=== PATIENT | male | born 1930 | race Caucasian/White ===

== ENCOUNTER 2017-04-06 08:06 | Observation (INO) | payer MEDICARE, BC ==
[2017-04-06] VITALS (17 sets, daily range): BP systolic 140–218; BP diastolic 63–95; PULSE 65–88; RESP 16–21; TEMP 98–98.5; O2SAT 96–98
[~2017-04-06 08:06] MED LIST: AZIT250T74 PO; CEFU1TAB43 PO; LASI20TA PO; OMEP20CA5 PO; POTA-267 PO; PRAV10 PO; PRED10PA PO; PRIN10TA PO; PROB500T10 PO; PROS5TAB2 PO; SUCR1TAB6 PO; TAB-TAB PO; TERA10CA3 PO; TRAM50 PO; VERA80 PO; VITA-13 PO; WARF7.5 PO
[2017-04-06] MEDS ORDERED: PROCHLORPERAZINE INJ 10 MG/2 ML VIAL IV PUSH ONE (08:45)
[2017-04-06] MEDS ORDERED: MORPHINE SULFATE 4 MG/ML INJ IV ONE (08:45)
--- NOTE | 2017-04-06 08:57 | PD ---
HPI Chief Complaint: Headache Time Seen by Provider: 08:39 Travel History International Travel<30 days: No Contact w/Intl Traveler<30days: No Traveled to known affect area: No History of Present Illness HPI Patient is a 86-year-old male who presents to ED complaining of severe headache and stiff neck. The headache started yesterday around 4 PM. Patient describes the headache as a continuous pressure pain (9/10), located on top of his head. Patient states that he feels his head is going to explode. Patient was unable to sleep until patient took additional dose of tramadol, which allowed him to sleep for approximately 3 hours. Patient describes sleep as deep sleep. Patient denies vision changes. Patient denies nausea and vomiting. Patient denies diarrhea and constipation. Patient denies weakness of upper and lower extremities. Patient reports left-sided numbness in the tip of his fingers. Patient denies previous headaches. Patient's reports that he has experienced stiff neck on and off for the past 6 months. PFSH Past Medical History Hx Anticoagulant Therapy: Yes Atrial Fibrillation: Yes Autoimmune Disease: No Anxiety: Yes Heart Rhythm Problems: Yes Cancer: Yes (MELANOMA NOSE) Cardiovascular Problems: Yes (a fib) High Cholesterol: Yes Diabetes: No Diminished Hearing: No Endocrine: No GERD: Yes Glaucoma: No Genitourinary: No Hepatitis: No Hiatal Hernia: No Hypertension: Yes Immune Disorder: No Musculoskeletal: No Reproductive: No Respiratory: No Thyroid Disease: No Past Surgical History Abdominal Surgery: Yes Cardiac Surgery: No Ear Surgery: No Eye Surgery: No Genitourinary Surgery: No Gynecologic Surgery: No Oral Surgery: No Pacemaker: No Thoracic Surgery: No Social History Alcohol Use: No Tobacco Use: No Substance Use: No Allergies-Medications (Allergen,Severity, Reaction): Coded Allergies: No Known Allergies (Verified , 04/01/15) Reported Meds & Prescriptions Reported Meds & Active Scripts Active Reported Verapamil SR (Verapamil HCl) 180 Mg Cap 180 Mg PO DAILY Tramadol (Tramadol HCl) 50 Mg Tab 50 Mg PO Q4H PRN Terazosin (Terazosin HCl) 2 Mg Cap 2 Mg PO HS Vitamin D3 (Cholecalciferol) 1,000 Unit Chew 1,000 Units CHEW DAILY Probenecid 500 Mg Tab 250 Mg PO Q12HR Sucralfate 1 Gm Tab 1 Gm PO QID on empty stomach Pravastatin 40 Mg Tab 40 Mg PO DAILY Potassium Chloride ER (Potassium Chloride) 10 Meq Tab 10 Meq PO BID Omeprazole 20 Mg Tab 20 Mg PO DAILY Lisinopril 40 Mg Tab 40 Mg PO DAILY Furosemide 20 Mg Tab 20 Mg PO BID Finasteride 5 Mg Tab 5 Mg PO DAILY Do not crush. Pradaxa (Dabigatran) 150 Mg Cap 150 Mg PO BID Review of Systems General / Constitutional: No: Fever Eyes: No: Visual changes HENT: Positive: Headaches Cardiovascular: No: Chest Pain or Discomfort Respiratory: No: Shortness of Breath Gastrointestinal: No: Nausea, Vomiting, Diarrhea, Abdominal Pain, Constipation Genitourinary: No: Dysuria Musculoskeletal: Positive: Pain (neck ) Skin: No Rash Neurologic: No: Weakness Psychiatric: No: Depression Endocrine: No: Polydipsia Hematologic/Lymphatic: No: Easy Bruising Physical Exam Narrative GENERAL: Patient is a well-nourished, well-developed, elderly male in no apparent distress. SKIN: Warm and dry. HEAD: Atraumatic. Normocephalic. EYES: Pupils equal and round. No scleral icterus. No injection or drainage. ENT: No nasal bleeding or discharge. Mucous membranes pink and moist. NECK: Trachea midline. No JVD. CARDIOVASCULAR: Regular rate and rhythm. RESPIRATORY: No accessory muscle use. Clear to auscultation. Breath sounds equal bilaterally. GASTROINTESTINAL: Abdomen soft, non-tender, nondistended. Hepatic and splenic margins not palpable. MUSCULOSKELETAL: Extremities without clubbing, cyanosis, or edema. No obvious deformities. NEUROLOGICAL: Awake and alert. No obvious cranial nerve deficits. Motor and sensory grossly within normal limits. Five out of 5 muscle strength in the arms and legs. Normal speech. PSYCHIATRIC: Appropriate mood and affect; insight and judgment normal. Data Data Last Documented VS Vital Signs Date Time Temp Pulse Resp B/P (MAP) Pulse Ox O2 Delivery O2 Flow Rate FiO2 04/06/17 09:30 65 16 179/76 (110) 97 04/06/17 08:08 98.4 Orders Orders Electrocardiogram (04/06/17 08:39) Complete Blood Count With Diff (04/06/17 08:39) Comprehensive Metabolic Panel (04/06/17 08:39) Ct Brain W/O Iv Contrast(Rout) (04/06/17 08:39) Iv Access Insert/Monitor (04/06/17 08:39) Ecg Monitoring (04/06/17 08:39) Oximetry (04/06/17 08:39) Morphine Inj (Morphine Inj) (04/06/17 08:45) Prochlorperazine Inj (Compazine Inj) (04/06/17 08:45) Hydralazine Inj (Apresoline Inj) (04/06/17 09:15) Admit Order (Ed Use Only) (04/06/17 10:27) Labs Laboratory Tests Test 04/06/17 08:30 White Blood Count 5.7 TH/MM3 Red Blood Count 4.17 MIL/MM3 Hemoglobin 11.4 GM/DL Hematocrit 36.0 % Mean Corpuscular Volume 86.3 FL Mean Corpuscular Hemoglobin 27.4 PG Mean Corpuscular Hemoglobin Concent 31.7 % Red Cell Distribution Width 15.5 % Platelet Count 153 TH/MM3 Mean Platelet Volume 8.7 FL Neutrophils (%) (Auto) 72.7 % Lymphocytes (%) (Auto) 17.4 % Monocytes (%) (Auto) 8.7 % Eosinophils (%) (Auto) 0.6 % Basophils (%) (Auto) 0.6 % Neutrophils # (Auto) 4.2 TH/MM3 Lymphocytes # (Auto) 1.0 TH/MM3 Monocytes # (Auto) 0.5 TH/MM3 Eosinophils # (Auto) 0.0 TH/MM3 Basophils # (Auto) 0.0 TH/MM3 CBC Comment DIFF FINAL Differential Comment Blood Urea Nitrogen 16 MG/DL Creatinine 1.15 MG/DL Random Glucose 116 MG/DL Total Protein 6.6 GM/DL Albumin 3.4 GM/DL Calcium Level 8.2 MG/DL Alkaline Phosphatase 122 U/L Aspartate Amino Transf (AST/SGOT) 20 U/L Alanine Aminotransferase (ALT/SGPT) 24 U/L Total Bilirubin 0.7 MG/DL Sodium Level 137 MEQ/L Potassium Level 4.1 MEQ/L Chloride Level 104 MEQ/L Carbon Dioxide Level 24.5 MEQ/L Anion Gap 9 MEQ/L Estimat Glomerular Filtration Rate 61 ML/MIN MDM Medical Decision Making Medical Screen Exam Complete: Yes Emergency Medical Condition: Yes Differential Diagnosis Hypertensive urgency versus CVA versus TIA versus meningitis Narrative Course 86-year-old male with history of atrial fibrillation, on Pradaxa, presents today with A headache 2 days. Patient has had headaches on and off for about a month. Patient's blood pressure was noted to be elevated. He is currently prescribed antihypertensive however his pressure was still high despite this. He's been given hydralazine, 10 mg I V times one dose. CT brain shows no evidence of acute process. Case was discussed with the resident admitting service under Dr. Judge. He'll be placed under observation for blood pressure control. At this point working diagnosis is hypertensive urgency. Diagnosis Primary Impression: Hypertensive urgency Additional Impressions: Cephalgia Atrial fibrillation Hyperlipidemia Admitting Information Admitting Physician Requests: Observation Condition: Stable Eleazar Hardwick MD Apr 06, 2017 08:57
[2017-04-06 09:02] LABS: AUTOMATED NEUTROPHIL # 4.2 TH/MM3 (1.8-7.7); BASOPHIL % 0.6 % (0.0-2.0); EOSINOPHIL % 0.6 % (0.0-4.0); HEMO FLAGS DIFF FINAL; LYMPH % 17.4 % (9.0-44.0); MEAN CELL VOLUME 86.3 FL (80.0-100.0); MEAN CORPUSCULAR HEMOGLOBIN 27.4 PG (27.0-34.0); MEAN CORPUSCULAR HGB CONC 31.7 % (32.0-36.0); MONO % 8.7 % (0.0-8.0); NEUT % 72.7 % (16.0-70.0); PLATELET COUNT 153 TH/MM3 (150-450); RED BLOOD COUNT 4.17 MIL/MM3 (4.50-5.90); RED CELL DISTRIBUTION WIDTH 15.5 % (11.6-17.2); WHITE BLOOD COUNT 5.7 TH/MM3 (4.0-11.0)
--- NOTE | 2017-04-06 09:12 | RADRPT ---
EXAM DATE/TIME: 04/06/2017 08:49 [facility] COMPARISON: No previous studies available for comparison. INDICATIONS : Cephalgia. RADIATION DOSE: 56.35 CTDIvol (mGy) MEDICAL HISTORY : Hypertension. Cardiovascular disease SURGICAL HISTORY : Laminectomy. ENCOUNTER: Initial ACUITY: 1 day PAIN SCALE: 8/10 LOCATION: cranial TECHNIQUE: Multiple contiguous axial images were obtained of the head. Using automated exposure control and adj ustment of the mA and/or kV according to patient size, radiation dose was kept as low as reasonably a chievable to obtain optimal diagnostic quality images. DICOM format image data is available electro nically for review and comparison. FINDINGS: CEREBRUM: The ventricles are normal for age. No evidence of midline shift, mass lesion, hemorrhage or acute in farction. No extra-axial fluid collections are seen. POSTERIOR FOSSA: The cerebellum and brainstem are intact. The 4th ventricle is midline. The cerebellopontine angle i s unremarkable. EXTRACRANIAL: The visualized portion of the orbits is intact. SKULL: The calvaria is intact. No evidence of skull fracture. CONCLUSION: Negative for acute process. Damon Yo MD FACR on April 06, 2017 at 9:09 Board Certified Radiologist. This report was verified electronically.
[2017-04-06] MEDS ORDERED: hydrALAZINE HCL 20 MG/ML VIAL IV PUSH ONE (09:15)
[2017-04-06 09:30] LABS: ALT (GPT) 24 U/L (12-78); ANION GAP 9 MEQ/L (5-15); AST (GOT) 20 U/L (15-37); BICARBONATE 24.5 MEQ/L (21.0-32.0); BLOOD UREA NITROGEN 16 MG/DL (7-18); CHLORIDE 104 MEQ/L (98-107); GLOMERULAR FILTRATION RATE 61 ML/MIN (>89); POTASSIUM 4.1 MEQ/L (3.5-5.1); SODIUM (NA) 137 MEQ/L (136-145)
[2017-04-06 09:33] LABS: ALKALINE PHOSPHATASE 122 U/L (45-117); TOTAL BILIRUBIN ADULT 0.7 MG/DL (0.2-1.0)
[2017-04-06] MEDS ORDERED: PROB500T8 PO (10:17)
[2017-04-06] MEDS ORDERED: TERA2CAP3 PO (10:17)
[2017-04-06] MEDS ORDERED: VERA180C3 PO (10:17)
[2017-04-06] MEDS ORDERED: FINA5TAB2 PO (10:17)
[2017-04-06] MEDS ORDERED: FURO20TA PO (10:17)
[2017-04-06] MEDS ORDERED: SUCR1TAB PO (10:17)
[2017-04-06] MEDS ORDERED: PRAV40TA2 PO (10:17)
[2017-04-06] MEDS ORDERED: PRAD150C PO (10:17)
[2017-04-06] MEDS ORDERED: TRAM50TA PO (10:17)
[2017-04-06] MEDS ORDERED: CHOL100025 CHEW (10:17)
[2017-04-06] MEDS ORDERED: OMEP20TA PO (10:17)
[2017-04-06] MEDS ORDERED: LISI40TA PO (10:17)
[2017-04-06] MEDS ORDERED: POTA10TA2 PO (10:17)
--- NOTE | 2017-04-06 10:45 | HHI.HP ---
[facility] Service Family Medicine Primary Care Physician [facility] Admission Diagnosis hypertesive urgency, atrial fibrillation, cephalgia Diagnoses: Chief Complaint: headache International Travel<30 Days: No Contact w/Intl Traveler<30days: No History of Present Illness Patient is a 86-year-old male with history of hypertension who presents with headache. He states that last night around 4 PM, he started having a headache. The pain is mainly on the top of his head. He has also been having neck soreness for the last couple of months. No pain on the side of head. His neck is sore, especially moving from side to side. Pain does not radiate. Patient states the pain is 9/10. Describes it as achy. He does take tramadol home every 8 hours, to take it a little sooner last night and helped him sleep. Eyes any nausea/vomiting. No changes in vision. No photophobia or sensitivity to loud noises. No changes in hearing or tinnitus. No sinus pressure or drainage. States he has some numbness of his left fingers, but this started 6 months ago. No new loss of sensation or numbness. No weakness or slurred speech. No history of stroke. No eye lacrimation. Denies any chest pain , shortness of breath, abdominal pain. History of alcoholism, has been sober for 30 years. (Max Santiago MD, R2) Review of Systems Constitutional: DENIES: Fever, Weight gain, Weight loss, Chills, Night Sweats Eyes: DENIES: Blurred vision, Eye pain, Vision loss, Photosensitivity, Double Vision Ears, nose, mouth, throat: DENIES: Tinnitus, Nasal discharge, Running Nose Respiratory: DENIES: Cough, Snoring, Wheezing, Sputum production, Shortness of breath Cardiovascular: DENIES: Chest pain, Palpitations, Syncope, Lower Extremity Edema Gastrointestinal: DENIES: Abdominal pain, Black stools, Bloody stools, Constipation, Diarrhea, Nausea, Vomiting Genitourinary: COMPLAINS OF: Urinary frequency Musculoskeletal: COMPLAINS OF: Back pain, Neck pain, DENIES: Joint pain, Muscle aches Integumentary: DENIES: Abnormal pigmentation, Rash Hematologic/lymphatic: DENIES: Bruising, Lymphadenopathy Immunologic/allergic: DENIES: Eczema, Urticaria Neurologic: COMPLAINS OF: Headache, DENIES: Abnormal gait, Localized weakness, Paresthesias, Seizures, Speech Problems, Tremor, Poor Balance Psychiatric: DENIES: Confusion, Mood changes, Depression (Max Santiago MD, R2) Past Family Social History Past Medical History Atrial fibrillation HTN HLD BPH Past Surgical History Partial stomach removal, ulcers s/p diet pills Reported Medications Reported Meds & Active Scripts Active Reported Verapamil SR (Verapamil HCl) 180 Mg Cap 180 Mg PO DAILY Tramadol (Tramadol HCl) 50 Mg Tab 50 Mg PO Q4H PRN Terazosin (Terazosin HCl) 2 Mg Cap 2 Mg PO HS Vitamin D3 (Cholecalciferol) 1,000 Unit Chew 1,000 Units CHEW DAILY Probenecid 500 Mg Tab 250 Mg PO Q12HR Sucralfate 1 Gm Tab 1 Gm PO QID on empty stomach Pravastatin 40 Mg Tab 40 Mg PO DAILY Potassium Chloride ER (Potassium Chloride) 10 Meq Tab 10 Meq PO BID Omeprazole 20 Mg Tab 20 Mg PO DAILY Lisinopril 40 Mg Tab 40 Mg PO DAILY Furosemide 20 Mg Tab 20 Mg PO BID Finasteride 5 Mg Tab 5 Mg PO DAILY Do not crush. Pradaxa (Dabigatran) 150 Mg Cap 150 Mg PO BID (Max Santiago MD, R2) Allergies: Coded Allergies: No Known Allergies (Verified , 04/01/15) Active Ordered Medications Active Medications Hydralazine HCl (Apresoline Inj) 20 mg ONCE ONCE IV PUSH Last administered on 10:10; Admin Dose 20 MG; Start 04/06/17 at 09:15; Stop 04/06/17 at 09: 25; Status DC Morphine Sulfate (Morphine Inj) 4 mg ONCE ONCE IV Last administered on 09:20; Admin Dose 4 MG; Start 04/06/17 at 08:45; Stop 04/06/17 at 08:46; Status DC Prochlorperazine Edisylate (Compazine Inj) 10 mg ONCE ONCE IV PUSH Last administered on 04/06/17 09:20; Admin Dose 10 MG; Start 04/06/17 at 08:45; Stop 04/06/17 at 08:46; Status DC Family History Father-smoking/drinking Mother-smoking/drinking Cousins-brain cancer Social History Lives by self Former [place] 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 SKIN: No rashes. Cool and dry. HEAD: Atraumatic. Normocephalic. No temporal or scalp tenderness. EYES: Pupils equal round and reactive. Extraocular motions intact. No scleral icterus. No injection or drainage. No lacrimation ENT: Nose without bleeding. Throat without erythema, tonsillar hypertrophy or exudate. Uvula midline. Airway patent. NECK: Trachea midline. No JVD or lymphadenopathy. Supple. Muscles tender to palpation. Limited ROM with extension/flexion and rotation. CARDIOVASCULAR: Regular rate; irregular rhythm without murmurs, gallops, or rubs. RESPIRATORY: Clear to auscultation. Breath sounds equal bilaterally. No wheezes , rales, or rhonchi. GASTROINTESTINAL: Abdomen soft, non-tender, nondistended. No hepato-splenomegaly , or palpable masses. No guarding. MUSCULOSKELETAL: Extremities without clubbing, cyanosis, or edema. No joint tenderness, effusion, or edema noted. No calf tenderness. NEUROLOGICAL: Awake and alert. Cranial nerves II through XII intact. Motor and sensory intact bilaterally. Five out of 5 muscle strength in all muscle groups. Normal cerebellar tests; normal heel-fernández. Normal speech. Laboratory Laboratory Tests Test 04/06/17 08:30 White Blood Count 5.7 Red Blood Count 4.17 Hemoglobin 11.4 Hematocrit 36.0 Mean Corpuscular Volume 86.3 Mean Corpuscular Hemoglobin 27.4 Mean Corpuscular Hemoglobin Concent 31.7 Red Cell Distribution Width 15.5 Platelet Count 153 Mean Platelet Volume 8.7 Neutrophils (%) (Auto) 72.7 Lymphocytes (%) (Auto) 17.4 Monocytes (%) (Auto) 8.7 Eosinophils (%) (Auto) 0.6 Basophils (%) (Auto) 0.6 Neutrophils # (Auto) 4.2 Lymphocytes # (Auto) 1.0 Monocytes # (Auto) 0.5 Eosinophils # (Auto) 0.0 Basophils # (Auto) 0.0 CBC Comment DIFF FINAL Differential Comment Blood Urea Nitrogen 16 Creatinine 1.15 Random Glucose 116 Total Protein 6.6 Albumin 3.4 Calcium Level 8.2 Alkaline Phosphatase 122 Aspartate Amino Transf (AST/SGOT) 20 Alanine Aminotransferase (ALT/SGPT) 24 Total Bilirubin 0.7 Sodium Level 137 Potassium Level 4.1 Chloride Level 104 Carbon Dioxide Level 24.5 Anion Gap 9 Estimat Glomerular Filtration Rate 61 (Max Santiago MD, R2) Result Diagram: 04/06/1782904/06/17829 Imaging Last Impressions Head CT 04/06/17838 Signed Impressions: Service Date/Time: Thursday, April 06, 2017 08:49 - CONCLUSION: Negative for acute process. Damon Yo MD FACR (Max Santiago MD, R2) Caprini VTE Risk Assessment Caprini VTE Risk Assessment: Mod/High Risk (score >= 2) Caprini Risk Assessment Model Point Value = 1 Point Value = 2 Point Value = 3 Point Value = 5 Age 41-60 Minor surgery BMI > 25 kg/m2 Swollen legs Varicose veins or History of unexplained or recurrent spontaneous Oral contraceptives or hormone replacement Sepsis (< 1 month) Serious lung disease, including pneumonia (< 1 month) Abnormal pulmonary function Acute myocardial infarction Congestive heart failure (< 1 month) History of inflammatory bowel disease Medical patient at bed rest Age 61-74 Arthroscopic surgery Major open surgery (> 45 min) Laparoscopic surgery (> 45 min) Malignancy Confined to bed (> 72 hours) Immobilizing plaster cast Central venous access Age >= 75 History of VTE Family history of VTE Factor V Leiden Prothrombin [id number] Lupus anticoagulant Anticardiolipin antibodies Elevated serum homocysteine Heparin-induced thrombocytopenia Other congenital or acquired thrombophilia Stroke (< 1 month) Elective arthroplasty Hip, pelvis, or leg fracture Acute spinal cord injury (< 1 month) Prophylaxis Regimen Total Risk Factor Score Risk Level Prophylaxis Regimen 0-1 Low Early ambulation 2 Moderate Order ONE of the following: *Sequential Compression Device (SCD) *Heparin 5000 units SQ BID 3-4 Higher Order ONE of the following medications: *Heparin 5000 units SQ TID *Enoxaparin/Lovenox 40 mg SQ daily (WT < 150 kg, CrCl > 30 mL/min) *Enoxaparin/Lovenox 30 mg SQ daily (WT < 150 kg, CrCl > 10-29 mL/min) *Enoxaparin/Lovenox 30 mg SQ BID (WT < 150 kg, CrCl > 30 mL/min) AND/OR *Sequential Compression Device (SCD) 5 or more Highest Order ONE of the following medications: *Heparin 5000 units SQ TID (Preferred with Epidurals) *Enoxaparin/Lovenox 40 mg SQ daily (WT < 150 kg, CrCl > 30 mL/min) *Enoxaparin/Lovenox 30 mg SQ daily (WT < 150 kg, CrCl > 10-29 mL/min) *Enoxaparin/Lovenox 30 mg SQ BID (WT < 150 kg, CrCl > 30 mL/min) AND *Sequential Compression Device (SCD) (Max Santiago MD, R2) Assessment and Plan Assessment and Plan Patient is a 86-year-old male with history of hypertension presents with headache and hypertensive urgency. We will admit for blood pressure control and management. Code Status Full Discussed Condition With Drs. Judge & Yaneth (Max Santiago MD, R2) Attending Attestation Patient seen and examined. Case reviewed and discussed with the resident team. Please refer to resident H&P for further details regarding HPI, ROS, PMH, SurgHx , Fh and SocHx In summary, patient is an 86yoM with a history of afib, anticoagulated on Pradaxa presenting with headache. Upon arrival to the ED, he was found to have BPs >200/90 Patient is seen in the ED resting in his hospital bed. He denies chest pain or shortness of breath GENERAL: wdwn elderly male, sitting up, NAD SKIN: Warm and dry. No rashes HEAD: Normocephalic AT. EYES: No scleral icterus. No injection or drainage. ENT: OP clear. MMM NECK: Supple, trachea midline. No JVD or lymphadenopathy. CARDIOVASCULAR: Irregularly irregular, rate controlled. without audible murmurs , gallops, or rubs. RESPIRATORY: Breath sounds equal and clear bilaterally. No accessory muscle use. GASTROINTESTINAL: Abdomen soft, non-tender, nondistended. No rebound. Normal active BS MUSCULOSKELETAL: No cyanosis, or edema. No calf tenderness BACK: Nontender without obvious deformity. No CVA tenderness NEURO: Awake and alert. Normal speech. CN grossly intact. A/P: 86yoM admitted with: Hypertensive emergency vs urgency Chronic afib Anticoagulated on Pradaxa HTN Anemia BPH GERD Control BP Monitor VS Neuro checks UA Titrate antihypertensives Resume home meds as appropriate consider echo Serial ekg, trop Patient seen and examined. Case reviewed and discussed Agree with plan of care as discussed with me and documented in the resident note. (Tessa Judge MD) Problem List: (1) Hypertensive urgency ICD Codes: I16.0 - Hypertensive urgency Status: Acute Plan: Patient presents with blood pressure 190/80, chato up to 218/95. Patient presents with headache symptomatically, no other symptoms. No neurological signs, urinalysis pending, normal BUN/Cr, initial troponin normal, making hypertensive emergency unlikely Headache ddx (SAH, migraine, tension FRIEDMAN, temporal arteritis) - Head CT negative for acute process, no signs of other headache clinically via history or physical. Pt given Hydralazine in ED -Admit to observation -Continue home BP Meds -Lisinopril 40mg daily -Increase verapamil to 240mg daily -Clonidine & Hydralazine PRN -Limit lowering BP >25% -UA pending -Telemetry -Neuro checks (2) Atrial fibrillation ICD Codes: I48.91 - Atrial fibrillation Status: Acute Plan: History of chronic atrial fibrillation. On Pradaxa at home. Denies any symptoms currently. Irregularly irregular on exam. Rate-controlled -Continue home meds as above -Continue Pradaxa -Telemetry (3) BPH (benign prostatic hyperplasia) ICD Codes: N40.0 - Benign prostatic hyperplasia without lower urinary tract symptoms Plan: Continue home meds -Finasteride, Terazosin (4) FEN Plan: Fluids: Tolerating PO Electrolytes: wnl, continue to monitor and replace as needed Nutrition: heart healthy diet DVT ppx: Pradaxa (Max Santiago MD, R2) Problem Qualifiers (1) Atrial fibrillation: Qualified Codes: I48.2 - Chronic atrial fibrillation (2) BPH (benign prostatic hyperplasia): Qualified Codes: N40.1 - Benign prostatic hyperplasia with lower urinary tract symptoms; R35.0 - Frequency of micturition Max Santiago MD, R2 Apr 06, 2017 10:45 Tessa Judge MD Apr 06, 2017 16:57
[2017-04-06] MEDS ORDERED: hydrALAZINE HCL 20 MG/ML VIAL IV PRN (11:15)
[2017-04-06] MEDS ORDERED: SODIUM CHLORIDE 0.9% FLUSH 10 ML FLUSH IV FLUSH PRN (11:15)
[2017-04-06] MEDS: SUCRALFATE 1 GM TAB PO SCH ×3 (14:00→21:56)
[2017-04-06] MEDS: traMADol HCL 50 MG TAB PO PRN (14:01)
--- NOTE | 2017-04-06 14:34 | EKG ---
Date Performed: 04/06/2017 Time Performed: 09:06:53 PTAGE: 86 years EKG: ATRIAL FIBRILLATION MARKED LEFT AXIS DEVIATION ABNORMAL ECG Compared to prior tracing no si gnificant change PREVIOUS TRACING : 04/01/2015 22.25 DOCTOR: Sharan Gonzalez Interpretating Date/Time 04/06/2017 14:28:51
[2017-04-06] MEDS: cloNIDine HCL 0.1 MG TAB PO PRN (17:54)
[2017-04-06] MEDS ORDERED: TERAZOSIN HCL 1 MG CAP PO SCH (21:00)
[2017-04-06] MEDS: SODIUM CHLORIDE 0.9% FLUSH 10 ML FLUSH IV FLUSH SCH (21:00)
[2017-04-06] MEDS: POTASSIUM CHLORIDE 10 MEQ CONTROLLED RELEASE TAB PO SCH (21:56)
[2017-04-06] MEDS: PROBENECID 500 MG TAB PO SCH (21:56)
[2017-04-06] MEDS: DABIGATRAN ETEXILATE 150 MG CAP PO SCH (21:56)
[2017-04-06] MEDS: FUROSEMIDE 20 MG TAB PO SCH (21:57)
[2017-04-06 22:41] LABS: BLOOD, URINE NEG (NEG); COMMENT (UR) CULT NOT INDICATED; CULTURE IF INDICATED CULT NOT INDICATED; GLUCOSE,URINE NEG (NEG); KETONE, URINE NEG (NEG); NITRITE,URINE NEG (NEG); SQUAMOUS EPITHELIAL CELL URINE <1 /hpf (0-5); URINE COLOR YELLOW (YELLW/STRAW)
[2017-04-07 00:29] VITALS: BP 184/77; PULSE 65; RESP 18; TEMP 98.6; O2SAT 95
[2017-04-07] MEDS: cloNIDine HCL 0.1 MG TAB PO PRN (00:34)
[2017-04-07 03:54] VITALS: BP 176/80; PULSE 67; RESP 19; TEMP 98; O2SAT 95
[2017-04-07 05:22] LABS: AUTOMATED NEUTROPHIL # 2.8 TH/MM3 (1.8-7.7); BASOPHIL % 0.7 % (0.0-2.0); EOSINOPHIL # 0.1 TH/MM3 (0-0.4); EOSINOPHIL % 2.3 % (0.0-4.0); HEMATOCRIT 35.8 % (39.0-51.0); HEMO FLAGS DIFF FINAL; LYMPH % 28.4 % (9.0-44.0); LYMPHOCYTE # 1.4 TH/MM3 (1.0-4.8); MEAN CELL VOLUME 85.2 FL (80.0-100.0); MEAN CORPUSCULAR HEMOGLOBIN 28.2 PG (27.0-34.0); MEAN CORPUSCULAR HGB CONC 33.1 % (32.0-36.0); MONO % 10.5 % (0.0-8.0); NEUT % 58.1 % (16.0-70.0); PLATELET COUNT 134 TH/MM3 (150-450); RED CELL DISTRIBUTION WIDTH 15.9 % (11.6-17.2); WHITE BLOOD COUNT 4.8 TH/MM3 (4.0-11.0)
[2017-04-07 05:37] LABS: POTASSIUM 3.7 MEQ/L (3.5-5.1)
[2017-04-07 07:48] VITALS: BP 179/84; PULSE 74; RESP 19; TEMP 98.1; O2SAT 95
[2017-04-07] MEDS: SUCRALFATE 1 GM TAB PO SCH ×2 (08:24→12:42)
[2017-04-07] MEDS: POTASSIUM CHLORIDE 10 MEQ CONTROLLED RELEASE TAB PO SCH (08:24)
[2017-04-07] MEDS: FUROSEMIDE 20 MG TAB PO SCH (08:26)
[2017-04-07] MEDS: PROBENECID 500 MG TAB PO SCH (08:26)
[2017-04-07] MEDS: SODIUM CHLORIDE 0.9% FLUSH 10 ML FLUSH IV FLUSH SCH (08:27)
[2017-04-07] MEDS: DABIGATRAN ETEXILATE 150 MG CAP PO SCH (08:27)
[2017-04-07] MEDS: traMADol HCL 50 MG TAB PO PRN (08:31)
[2017-04-07] MEDS ORDERED: VERAPAMIL HCL 180 MG SUSTAINED RELEASE TAB PO SCH (09:00)
[2017-04-07] MEDS ORDERED: PANTOPRAZOLE SOD 20 MG DELAYED RELEASE TAB PO SCH (09:00)
[2017-04-07] MEDS ORDERED: LISINOPRIL 20 MG TAB PO SCH (09:00)
[2017-04-07] MEDS ORDERED: FINASTERIDE 5 MG TAB PO SCH (09:00)
[2017-04-07] MEDS ORDERED: CHOLECALCIFEROL (VIT D3) 1000 UNIT TAB PO SCH (09:00)
[2017-04-07] MEDS ORDERED: VERAPAMIL HCL 240 MG SUSTAINED RELEASE TAB PO SCH (09:00)
[2017-04-07] MEDS ORDERED: PRAVASTATIN SOD 40 MG TAB PO SCH (09:00)
--- NOTE | 2017-04-07 12:10 | HHI.FPPN ---
Subjective Remarks Patient states that he is doing well this morning. He no longer has a headache and his neck pain is better. No fever/chills, no CP, no SOB, no abdominal pain, no nausea/vomiting, no constipation/diarrhea. (Earline Wolfe MD R1) Objective Vitals Vital Signs Date Time Temp Pulse Resp B/P (MAP) Pulse Ox O2 Delivery O2 Flow Rate FiO2 04/07/17 07:48 98.1 74 19 179/84 (115) 95 04/07/17 03:54 98.0 67 19 176/80 (112) 95 04/07/17 00:29 98.6 65 18 184/77 (112) 95 04/06/17 22:02 96 04/06/17 20:10 98.5 75 18 140/63 (88) 97 04/06/17 16:18 180/82 (114) Automatic Cuff 04/06/17 16:06 98.2 88 18 184/89 (120) 96 04/06/17 16:00 77 04/06/17 14:35 142/69 (93) 04/06/17 14:05 184/81 (115) 04/06/17 12:40 73 04/06/17 12:05 98.0 80 21 183/81 (115) 96 I/O 04/06/17 04/06/17 04/06/17 04/07/17 04/07/17 04/07/17 07:00 15:00 23:00 07:00 15:00 23:00 Intake Total 200 ml Balance 200 ml Intake Oral 200 ml # Voids 3 (Earline Wolfe MD R1) Result Diagram: 04/07/17 0500 04/07/17 0458 Imaging Last Impressions Head CT 04/06/17 0839 Signed Impressions: Service Date/Time: Thursday, April 06, 2017 08:49 - CONCLUSION: Negative for acute process. Damon Yo MD FACR Objective Remarks GENERAL: Well-nourished, well-developed patient. SKIN: Warm and dry. HEAD: Normocephalic. EYES: No scleral icterus. No injection or drainage. NECK: paraspinal tenderness bilaterally CARDIOVASCULAR: Irregular rate and rhythm without murmurs, gallops, or rubs. RESPIRATORY: Breath sounds equal bilaterally. No accessory muscle use. GASTROINTESTINAL: Abdomen soft, non-tender, nondistended. EXTREMITIES: No cyanosis, or edema. NEUROLOGICAL: Awake, alert,Non-focal. Medications and IVs Current Medications Medications (Trade) Dose Ordered Sig/Alysia Route Start Time Stop Time Status Last Admin (NS Flush) 2 ml UNSCH PRN IV FLUSH 04/06/17 11:15 (NS Flush) 2 ml BID IV FLUSH 04/06/17 21:00 04/07/17 08:27 (Apresoline Inj) 10 mg Q6H PRN IV 04/06/17 11:15 04/06/17 14:07 (Vitamin D3) 1,000 units DAILY PO 04/07/17 09:00 04/07/17 08:25 (Pradaxa) 150 mg BID PO 04/06/17 21:00 04/07/17 08:27 (Proscar) 5 mg DAILY PO 04/07/17 09:00 04/07/17 08:24 (Lasix) 20 mg BID PO 04/06/17 21:00 04/07/17 08:26 (KCl) 10 meq BID PO 04/06/17 21:00 04/07/17 08:24 (Pravachol) 40 mg DAILY PO 04/07/17 09:00 04/07/17 08:24 (Benemid) 250 mg Q12HR PO 04/06/17 21:00 04/07/17 08:26 (Carafate) 1 gm QID PO 04/06/17 13:00 04/07/17 08:24 (Hytrin) 2 mg HS PO 04/06/17 21:00 04/06/17 21:56 (Ultram) 50 mg Q4H PRN PO 04/06/17 11:15 04/07/17 08:31 (Prinivil) 40 mg DAILY PO 04/07/17 09:00 04/07/17 08:25 (Protonix) 20 mg DAILY PO 04/07/17 09:00 04/07/17 08:25 (Isoptin Sr) 240 mg DAILY PO 04/07/17 09:00 04/07/17 08:25 (Catapres) 0.1 mg Q6H PRN PO 04/06/17 16:30 04/07/17 00:34 (Earline Wolfe MD R1) A/P Assessment and Plan Patient is a 86-year-old male with history of hypertension presents with headache and hypertensive urgency. We will admit for blood pressure control and management. Discharge Planning Discharge today if BP is lowered to 160s/90 (Earline Wolfe MD R1) Attending Attestation Patient seen and examined. Case reviewed and discussed Agree with plan of care as discussed with me and documented in the resident note. (Tessa Judge MD) Problem List: (1) Hypertensive urgency ICD Codes: I16.0 - Hypertensive urgency Status: Acute Plan: Patient presents with blood pressure 190/80, chato up to 218/95. Patient presents with headache symptomatically, no other symptoms. No neurological signs, urinalysis pending, normal BUN/Cr, initial troponin normal, making hypertensive emergency unlikely Headache ddx (SAH, migraine, tension FRIEDMAN, temporal arteritis) - Head CT negative for acute process, no signs of other headache clinically via history or physical. Pt given Hydralazine in ED -Admitted to observation -Continue home BP Meds -Lisinopril 40mg daily -Increased verapamil to 240mg daily -Clonidine & Hydralazine PRN -Telemetry -Neuro checks (2) Atrial fibrillation ICD Codes: I48.91 - Atrial fibrillation Status: Acute Plan: History of chronic atrial fibrillation. On Pradaxa at home. Denies any symptoms currently. Irregularly irregular on exam. Rate-controlled -Continue home meds as above -Continue Pradaxa -Telemetry (3) BPH (benign prostatic hyperplasia) ICD Codes: N40.0 - Benign prostatic hyperplasia without lower urinary tract symptoms Plan: Continue home meds -Finasteride, Terazosin (4) FEN Plan: Fluids: Tolerating PO Electrolytes: wnl, continue to monitor and replace as needed Nutrition: heart healthy diet DVT ppx: Pradaxa (Earline Wolfe MD R1) Problem Qualifiers (1) Atrial fibrillation: Qualified Codes: I48.2 - Chronic atrial fibrillation (2) BPH (benign prostatic hyperplasia): Qualified Codes: N40.1 - Benign prostatic hyperplasia with lower urinary tract symptoms; R35.0 - Frequency of micturition Earline Wolfe MD R1 Apr 07, 2017 12:10 Tessa Judge MD Apr 10, 2017 11:09
[2017-04-07 12:33] VITALS: BP 148/68; PULSE 59; RESP 20; TEMP 98.1; O2SAT 96
--- NOTE | 2017-04-07 14:03 | HHI.DCPOC ---
Discharge Care Plan Diagnosis: (1) Hypertensive urgency (2) Hypertension Goals to Promote Your Health * To prevent worsening of your condition and complications * To maintain your health at the optimal level Directions to Meet Your Goals Take your medications as prescribed Follow your dietary instruction Follow activity as directed Keep your appointments as scheduled Take your immunizations and boosters as scheduled If your symptoms worsen call your PCP, if no PCP go to Urgent Care Center or Emergency Room Smoking is Dangerous to Your Health. Avoid second hand smoke Call the 24-hour hour crisis hotline for domestic abuse at Wisam Martinez MD R3 Apr 07, 2017 14:03
[2017-04-07] MEDS ORDERED: CALA240T PO (14:07)
[2017-04-09] MEDS ORDERED: CALA240T PO (10:12)
== END 2017-04-07 16:20 | disposition home or self-care (01) ==
LOC: NEPE 08:06 → NEDA 10:29 → NEPFCDU 11:55
PROVIDERS: ADMIT Family Medicine; ATTEND Family Medicine
DX: I16.0 Hypertensive urgency (principal); I10 Essential (primary) hypertension; I48.2 Chronic atrial fibrillation; E78.5 Hyperlipidemia, unspecified; Z79.01 Long term (current) use of anticoagulants
CPT/HCPCS: 70450; 80048; 80053; 81001; 84484; 85025; 93005; 96374; 96375; 96376; 99285; G0378; J0360; J0780; J2270